=== PATIENT | female | born 1995 | race African-American/Black ===

== ENCOUNTER 2022-10-10 14:06 | Emergency (ER) | payer OTHER ==
[2022-10-10 14:41] VITALS: BP 132/74; PULSE 78; RESP 18; TEMP 98.3; BMI 36.7
[2022-10-10] MEDS ORDERED: HIV POST EXPOSURE PROPHYLAXIS KIT PO ONE (15:13)
[2022-10-10] MEDS: HIV POST EXPOSURE PROPHYLAXIS KIT PO ONE ×2 (15:14→15:58)
[2022-10-10 16:01] LABS: HEMATOCRIT 34.5 % (32.4-45.2); HEMOGLOBIN 11.5 G/dL (10.7-15.3); MCH 29.3 pg (25.7-33.7); MCHC 33.4 g/dl (32.0-36.0); MEAN CELL VOLUME 87.7 fl (80-96); PLATELET COUNT 367.2 10^3/uL (134-434); RBC 3.93 10^6/uL (3.60-5.2); RDW 14.7 % (11.6-15.6); WHITE BLOOD COUNT 5.6 10^3/uL (4.0-10.8)
[2022-10-10 16:08] LABS: ALBUMIN 4.1 g/dl (3.4-5.0); BILIRUBIN,TOTAL 0.7 mg/dl (0.2-1); CALCIUM 8.7 mg/dl (8.5-10); CREATININE 0.8 mg/dl (0.55-1.3); TOT PROT 7.1 g/dl (6.4-8.2)
[2022-10-13 00:28] LABS: HIV INTERPRETATION NEGATIVE (NEGATIVE)
== END 2022-10-10 16:15 | disposition home or self-care (01) ==
LOC: FER 14:06
DX: S61.341A Puncture wound with foreign body of left index finger with damage to nail, initial encounter (principal); W46.1XXA Contact with contaminated hypodermic needle, initial encounter
CPT/HCPCS: 36415; 80053; 81025; 84703; 85027; 86705; 86707; 86780; 87350; 87389; 87517; 87522; 99283-25

== ENCOUNTER 2023-06-28 09:30 | Emergency (ER) | payer OTHER ==
[2023-06-28 09:50] VITALS: BP 110/70; PULSE 84; RESP 16; TEMP 98.2; BMI 38.4
[2023-06-28 10:20] LABS: HEMATOCRIT 37.2 % (32.4-45.2); HEMOGLOBIN 12.6 G/dL (10.7-15.3); MCH 29.5 pg (25.7-33.7); MCHC 33.9 g/dl (32.0-36.0); MEAN CELL VOLUME 86.9 fl (80-96); MEAN PLT VOLUME 6.9 fl (7.5-11.1); PLATELET COUNT 297.9 10^3/uL (134-434); RBC 4.28 10^6/uL (3.60-5.2); RDW 14.2 % (11.6-15.6); WHITE BLOOD COUNT 5.5 10^3/uL (4.0-10.8)
[2023-06-28 10:42] LABS: ALBUMIN 4.2 g/dl (3.4-5.0); BILIRUBIN,TOTAL 0.3 mg/dl (0.2-1); CREATININE 0.9 mg/dl (0.6-1.3); POTASSIUM 4.1 mmol/L (3.5-5.1)
[2023-06-28 11:16] LABS: PLATELET ESTIMATE ADEQUATE
[2023-06-28 13:24] LABS: HIV INTERPRETATION NEGATIVE (NEGATIVE)
== END 2023-06-28 10:46 | disposition home or self-care (01) ==
LOC: FER 09:30
DX: Z77.21 Contact with and (suspected) exposure to potentially hazardous body fluids (principal)
CPT/HCPCS: 36415; 80053; 85025; 86704; 86803; 87340; 87389; 87517; 99283-25